=== PATIENT | female | born 1935 | race Caucasian/White ===

== ENCOUNTER 2021-12-09 09:17 | Inpatient (IN) | payer MEDICARE, OTHER ==
[~2021-12-09] VITALS: Ht 160 cm; Wt 90.7 kg
[~2021-12-09 09:17] MED LIST: ALLEGRA ALLERG180 MG PO; B COMPLEX1 EACH PO; CALCIUM PO; CHLORDIAZEPOXID10 MG PO; FLUOXETINE HCL20 MG PO; LIPITOR TAB 1010 MG PO; LISINOPRIL10 MG PO; LORTAB 7.5-3251 EACH PO; STOOL SOFTENER100 M1 PO; ZANTAC150 MG PO
[2021-12-09 10:33] LABS: HEMOGLOBIN 15.2 gm/dl (12.3-15.3); RED BLOOD COUNT 4.74 M/UL (4.00-5.10); WHITE BLOOD COUNT 17.5 K/UL (4.5-11.0)
[2021-12-09 11:21] LABS: BUN/CREATININE RATIO 25 (0-10)
[2021-12-09] MEDS ORDERED: DICLOFENAC SOD100 GM TOP (15:33)
[2021-12-09] MEDS ORDERED: PEPCID40 MG PO (15:34)
[2021-12-09] MEDS ORDERED: MOBIC15 MG PO (15:34)
[2021-12-09] MEDS ORDERED: VITAMIN C1000 MG PO (15:36)
[2021-12-09] MEDS ORDERED: ACETAMINOPHEN325 MG PO (15:36)
[2021-12-09] MEDS ORDERED: ICAPS TABLET1 EACH PO (15:37)
[2021-12-09] MEDS ORDERED: LIPO-FLAVONOID1 EACH PO (15:38)
[2021-12-10 04:09] LABS: HEMOGLOBIN 14.1 gm/dl (12.3-15.3); RED BLOOD COUNT 4.58 M/UL (4.00-5.10); WHITE BLOOD COUNT 15.9 K/UL (4.5-11.0)
[2021-12-10 04:20] LABS: BUN/CREATININE RATIO 27 (0-10)
[2021-12-10 15:43] LABS: BUN/CREATININE RATIO 26 (0-10)
[2021-12-10 20:54] LABS: BUN/CREATININE RATIO 25 (0-10)
[2021-12-11 02:51] LABS: RED BLOOD COUNT 4.2 M/UL (4.00-5.10)
[2021-12-11 02:54] LABS: WHITE BLOOD COUNT 10.3 K/UL (4.5-11.0)
[2021-12-11 03:16] LABS: BUN/CREATININE RATIO 25 (0-10)
[2021-12-11 09:10] LABS: BUN/CREATININE RATIO 20 (0-10)
[2021-12-11 12:54] LABS: BUN/CREATININE RATIO 20 (0-10)
[2021-12-11 18:22] LABS: BUN/CREATININE RATIO 22 (0-10)
[2021-12-12 00:26] LABS: BUN/CREATININE RATIO 21 (0-10)
[2021-12-12 06:40] LABS: BUN/CREATININE RATIO 17 (0-10)
[2021-12-12 08:22] LABS: HEMOGLOBIN 13.4 gm/dl (12.3-15.3); RED BLOOD COUNT 4.24 M/UL (4.00-5.10); WHITE BLOOD COUNT 9.1 K/UL (4.5-11.0)
[2021-12-12 12:38] LABS: BUN/CREATININE RATIO 18 (0-10)
[2021-12-12 13:36] LABS: BORDETELLA PARAPERTUSSIS Not Detected (Not Detectd); BORDETELLA PERTUSSIS Not Detected (Not Detectd); CHLAMYDIA PNEUMONIAE Not Detected (Not Detectd); CORONAVIRUS HKU1 Not Detected (Not Detectd); CORONAVIRUS NL63 Not Detected (Not Detectd); CORONAVIRUS OC43 Not Detected (Not Detectd); CORONOAVIRUS 229E Not Detected (Not Detectd); HUMAN METAPNEUMOVIRUS Not Detected (Not Detectd); HUMAN RHINOVIRUS/ENTEROVIRUS Not Detected (Not Detectd); INFLUENZA A Not Detected (Not Detectd); INFLUENZA B Not Detected (Not Detectd); MYCOPLASMA PNEUMONIAE Not Detected (Not Detectd); PARAINFLUENZA VIRUS 1 Not Detected (Not Detectd); PARAINFLUENZA VIRUS 2 Not Detected (Not Detectd); PARAINFLUENZA VIRUS 3 Not Detected (Not Detectd); PARAINFLUENZA VIRUS 4 Not Detected (Not Detectd); RESPIRATORY SYNCYTIAL VIRUS Not Detected (Not Detectd)
[2021-12-12 16:54] LABS: SARS-CoV-2 NOT DETECTED (Not Detectd)
[2021-12-12 19:26] LABS: BUN/CREATININE RATIO 19 (0-10)
[2021-12-12] MEDS ORDERED: DOCUSATE SODIU100 MG PO (19:49)
[2021-12-12] MEDS ORDERED: SODIUM CHLORIDE1 G1 PO (19:49)
[2021-12-12] MEDS ORDERED: LEVOFLOXACIN750 MG PO (19:49)
[2021-12-12] MEDS ORDERED: ALLEGRA ALLERGY60 MG PO (19:49)
[2021-12-13 07:20] LABS: BUN/CREATININE RATIO 17 (0-10)
[2021-12-13] MEDS ORDERED: SODIUM CHLORIDE1 G1 PO (09:07)
[2021-12-13] MEDS ORDERED: ZOVIRAX 5% CREAM5 GM TOP (09:09)
[2021-12-13] MEDS ORDERED: LEVOFLOXACIN750 MG PO (09:16)
== END 2021-12-13 10:08 | disposition home or self-care (01) | DRG 194 ==
LOC: ER1 09:17 → MED SURG 4 14:56 → CDU 14:56 → MED SURG 4 16:07
PROVIDERS: Emergency Medicine; Family Medicine; Internal Medicine Nephrology; Physician Assistant Medical; ADMIT Internal Medicine
DX: J15.9 Unspecified bacterial pneumonia (principal); E22.2 Syndrome of inappropriate secretion of antidiuretic hormone; I10 Essential (primary) hypertension; Z20.822 Contact with and (suspected) exposure to COVID-19; E66.9 Obesity, unspecified; B02.9 Zoster without complications; F41.9 Anxiety disorder, unspecified; E78.5 Hyperlipidemia, unspecified; R91.1 Solitary pulmonary nodule; K80.20 Calculus of gallbladder without cholecystitis without obstruction; K59.09 Other constipation; Z98.42 Cataract extraction status, left eye; Z98.41 Cataract extraction status, right eye; Z98.890 Other specified postprocedural states; Z88.2 Allergy status to sulfonamides; Z88.0 Allergy status to penicillin; Z91.013 Allergy to seafood; Z83.3 Family history of diabetes mellitus; Z68.35 Body mass index [BMI] 35.0-35.9, adult
CPT/HCPCS: 0240U; 36415; 71045; 76705; 80048; 80053; 81001; 82436; 82533; 82550; 82553; 83605; 83690; 83735; 83880; 83935; 84133; 84295; 84300; 84443; 84484; 85025; 85027; 87278; 87633; 93005; 96374; 99285; J0360; J1650; J1956; J2405; J2550; Q9967